=== PATIENT | male | born 1990 | race Caucasian/White ===

== ENCOUNTER 2025-06-19 16:34 | Emergency (ER) | payer OTHER ==
[~2025-06-19] VITALS: Ht 172.7 cm; Wt 79.8 kg
[2025-06-19] MEDS ORDERED: ONDANSETRON HCL/PF 4 MG/2 ML VIAL ONE (17:09)
[2025-06-19] MEDS ORDERED: MORPHINE SULFATE INJ 4 MG/ML DISP.SYRIN ONE (17:09)
[2025-06-19] MEDS ORDERED: PROPOFOL 20 ML IV ONE (17:09)
[2025-06-19] MEDS: ONDANSETRON HCL/PF 4 MG/2 ML VIAL IVP ONE (17:20)
[2025-06-19] MEDS: MORPHINE SULFATE INJ 2 MG/ML DISP.SYRIN IV ONE (17:20)
[2025-06-19] MEDS: PROPOFOL 200 MG/20 ML VIAL IV ONE (17:26)
[2025-06-19] MEDS ORDERED: IBUP-1490 PO (18:07)
[2025-06-19 18:22] VITALS: BP 145/93; TEMP 98.2; O2SAT 100
== END 2025-06-19 18:24 | disposition home or self-care (01) ==
LOC: ER 16:36
DX: S43.015A Anterior dislocation of left humerus, initial encounter (principal); W01.0XXA Fall on same level from slipping, tripping and stumbling without subsequent striking against object, initial encounter; Y93.89 Activity, other specified; Y92.89 Other specified places as the place of occurrence of the external cause; Y99.8 Other external cause status
CPT/HCPCS: 99285; 23650; 96374; 96375; 99152; 73030; 73020; J2704; J2270; J2405; J7030; G0500